=== PATIENT | female | born 1980 | race Caucasian/White ===

== ENCOUNTER 2016-03-11 21:19 | Inpatient (IN) | payer BC ==
[~2016-03-11] VITALS: Ht 167.6 cm; Wt 75.9 kg
[~2016-03-11 21:19] MED LIST: FLNCV PO; KFL500 PO
[2016-03-11 22:30] VITALS: Ht 167.6 cm; Wt 75.9 kg
[2016-03-11] MEDS ORDERED: PRENTAB26 PO (22:33)
[2016-03-11 22:48] LABS: BASO % 0.2 %; BASO ABS # 0.03 K/uL (0-0.2); COMPLETE YES; EOS % 1.1 %; HEMATOCRIT 32.7 % (37-47); IG% 1.7 %; LYMPH % 20.5 %; LYMPH ABS # 2.59 K/uL (1.2-3.4); MEAN CELL VOLUME 81.8 fL (80-100); MEAN CORPUSCULAR HGB CONC 34.3 g/dl (32-36); MEAN PLATELET VOLUME 10.9 fL (7.4-10.4); MONO % 6.3 %; NEUT % 70.2 %; PLATELET COUNT 257 K/uL (130-400); WHITE BLOOD COUNT 12.63 K/uL (4.8-10.8)
[2016-03-11 23:25] LABS: INR 0.9 (0.9-1.1); PROTHROMBIN TIME (PATIENT) 9.9 SECONDS (9.0-12.0)
[2016-03-12] MEDS ORDERED: LACTATED RINGER'S 1000ML 1,000 ML IV SCH (00:27)
[2016-03-12] MEDS ORDERED: LACTATED RINGER'S 1000ML 1,000 ML IV PRN (00:27)
[2016-03-12] MEDS ORDERED: LACTATED RINGER'S 1000ML 500 ML IV PRN ×2 (00:29→11:40)
[2016-03-12] MEDS ORDERED: OXYTOCIN 30 UNITS/500ML NSS IV PRN ×2 (00:30→22:00)
[2016-03-12] MEDS ORDERED: PENICILLIN G POTASSIUM IV 6 MU in DEXTROSE 5% 250ML 250 ML IV ONE (01:00)
--- NOTE | 2016-03-12 01:05 | HISTORY & PHYSICAL EXAMINATION ---
DATE OF ADMISSION: 03/12/2016 CHIEF COMPLAINT: Spotting and vaginal bleeding. HISTORY OF PRESENT ILLNESS: The patient is a 35-year-old G4, P 2-0-1-2, at 39 weeks of gestation, who has been having spotting and light vaginal bleeding since 8:00 p.m. last night, 03/11/2016. She presented to labor and delivery and continued wiping bright red blood on the toilet paper and some on her pad. She has been also feeling crampy in the lower abdomen since 8:00 p.m. She was placed on the monitor. heart rate was 130s-140s with good accelerations, no decelerations. She was having minimal irregular contractions. She denied any leakage of fluid or regular contractions. She reported good movements. She had a speculum exam which showed minimal amount of dark blood and mucus in the vagina, coming from external cervical os. Cervix appeared to be normal multiparous cervix. There were no signs of cervicitis or vaginitis. Digital exam showed cervix to be 2 cm dilated, 30% effaced, -3, vertex. She then had blood work including CBC and coags. Her H\T\H came back 11.2/32.7, white count 12.6, platelets 257. Her coagulation including PT, PTT, INR and fibrinogen were normal. She also had an ultrasound which showed anterior placenta, no evidence of previa, DIANA 13 cm. She came back from ultrasound and we discussed the results in detail. Discussed the spotting could be from clinical abruption or early labor or cervicitis or vaginitis or unknown origin, We discussed observation overnight versus induction of labor at term due to this clinical finding. She understood and she desired to have induction of labor with Pitocin. She understands induction may take a day or two due to unfavorable cervix and the need to use medication. She understands the risks and benefits, and all questions were answered. Her has been complicated by: 1. History of previa without hemorrhage. She had 3 repeat ultrasounds in October and November, but no evidence of previa. 2. GBS positive. 3. High-grade Pap smear in 02/2015. She did not have colposcopy done. Repeat Pap smear at OB visit in July was the same. She declined colposcopy during this . LABORATORY DATA: Blood type is O positive, antibody screen negative, H\T\H , rubella positive, RPR nonreactive, hepatitis B surface antigen negative. GC and chlamydia cultures were negative. One-hour Glucola was 113. Repeat H\T\H was 11.9/34.1. TSH was 0.97. GBS culture was positive on 02/17/2016. PAST MEDICAL HISTORY: As above. Denies any medical problems. PAST SURGICAL HISTORY: Tonsillectomy. MEDICATIONS: vitamins, Bentyl 20 mg 2 times a day as needed for cramping. ALLERGIES: No known drug allergies. SOCIAL HISTORY: The patient denies smoking, alcohol or drug use. OBSTETRICAL HISTORY: She delivered full term in 2014 and 2011, both boys. No complications. She had spontaneous in 04/2015. This is her 4th . PHYSICAL EXAMINATION: GENERAL: The patient is alert, oriented x3, not in acute distress. VITAL SIGNS: Her blood pressure is 100/59, pulse 95, respiration 18, temperature 36.7. CARDIOVASCULAR: S1, S2, RRR. LUNGS: Clear to auscultation bilaterally. ABDOMEN: Soft, gravid. Braydon's 7 to 7-1/2 pounds. EXTREMITIES: Nontender, no edema. PELVIC: As above. heart rate 130s, category 1. [place], mild irregular contractions. ASSESSMENT AND PLAN: The patient is a 35-year-old G4, P 2-0-1-2, at 39 weeks of gestation, with spotting and light vaginal bleeding of unknown source. Vital signs stable, afebrile. heart rate reassuring. GBS positive. Discussed the options, either observation versus induction of labor at term. She desires induction. We plan to admit her, start IV fluids and IV low-dose Pitocin and then penicillin in labor and continuously monitor. All questions were answered. WILMA
[2016-03-12] MEDS ORDERED: INFLUENZA VIRUS QUAD VACCINE 0.5 ML SYR IM. ONE (06:00)
[2016-03-12] MEDS ORDERED: INFLUENZA ADMINISTRATION CHARGE ONE (06:00)
--- NOTE | 2016-03-12 08:04 | DIAGNOSTIC IMAGING REPORT ---
ULTRASOUND LIMITED CLINICAL HISTORY: . Vaginal spotting. COMPARISON STUDY: ultrasound dated 11/05/2015. FINDINGS: Real-time, grayscale, and color Doppler sonography of the fetus and gravid uterus is performed. There is a single live uterine gestation with an estimated heart rate of 139 bpm. Presentation is cephalic. The placenta is anterior and normal in appearance. The amniotic fluid index measures 10.36 cm. The femoral length measures 7.55 cm, corresponding to an estimated age of 38 weeks 4 days. The cervix appears closed and measures at least 2.5 cm in length. IMPRESSION: 1. There is a single live intrauterine gestation with an estimated age of 38 weeks 4 days by femoral length measurement. 2. No acute abnormality is seen. 3. Note that this does not constitute an anatomic scan. Electronically signed by: Cristofer Diez M.D. 03/12/2016 8:02 AM Dictated Date/Time: 03/12/2016 8:00 AM
[2016-03-12] MEDS: PENICILLIN G POTASSIUM IV 3 MU in DEXTROSE 5% 100ML 100 ML IV PRN ×3 (10:25→18:42)
[2016-03-12] MEDS ORDERED: FENTANYL 2MCG/ML ROPIV 1.25MG/ML 100ML BAG EPI ONE (10:30)
[2016-03-12] MEDS ORDERED: EpHEDrine SULFATE INJ 50 MG/ML AMP ONE (10:30)
[2016-03-12] MEDS ORDERED: BUPIVACAINE 0.25% 30 ML VIAL ONE (10:30)
[2016-03-12] MEDS ORDERED: FENTANYL CITRATE INJ 50 MCG/1 ML 2 ML VIAL ONE (10:31)
[2016-03-12] MEDS ORDERED: NALOXONE HCL INJ 1 MG in SODIUM CHLORIDE 0.9% 1000ML 1,000 ML IV PRN (11:40)
[2016-03-12] MEDS ORDERED: NALBUPHINE HCL INJ 10 MG/ML AMP IV PRN (11:45)
[2016-03-12] MEDS ORDERED: NALOXONE HCL INJ 0.4 MG/1 ML VIAL/CARP IV PRN (11:45)
[2016-03-12] MEDS ORDERED: EpHEDrine SULFATE INJ 50 MG/ML AMP IV PRN (11:45)
[2016-03-12] MEDS ORDERED: ONDANSETRON INJ 2 MG/ML 2 ML VIAL IV PRN (11:45)
[2016-03-12] MEDS ORDERED: DiphenhydrAMINE HCL 50 MG/ML VIAL IV PRN (11:45)
[2016-03-12] MEDS ORDERED: CALCIUM CARBONATE 500 MG CHEWABLE PO PRN (14:15)
[2016-03-12] MEDS ORDERED: NURSING VERBAL MED ORDER ONE (14:15)
[2016-03-12] MEDS: FENTANYL 2MCG/ML ROPIV 1.25MG/ML 100ML BAG EPI PRN ×2 (19:00→20:44)
[2016-03-12] MEDS ORDERED: METHYLERGONOVINE MALEATE 0.2 MG/ML AMP ONE (21:52)
[2016-03-12] MEDS ORDERED: ACETAMINOPHEN/CODEINE 300/30MG TAB PO PRN ×2 (22:00)
[2016-03-12] MEDS ORDERED: OXYCODONE/ACETAMINOPHEN 5-325 TAB PO PRN (22:00)
[2016-03-12] MEDS ORDERED: LANOLIN OINT EXT PRN ×2 (22:00)
[2016-03-12] MEDS ORDERED: ACETAMINOPHEN 325 MG TAB PO PRN (22:00)
[2016-03-12] MEDS ORDERED: SUPERCREAM 0.870 % 15GM JAR EXT PRN (22:00)
[2016-03-12] MEDS ORDERED: HYDROCORTISONE ACETATE 25 MG SUPP PR PRN (22:00)
[2016-03-12] MEDS ORDERED: METHYLERGONOVINE MALEATE 0.2 MG/ML AMP IM ONE (22:00)
[2016-03-12] MEDS ORDERED: BENZOCAINE 20% AER SPR 82.5 GM CAN EXT PRN (22:00)
--- NOTE | 2016-03-12 22:46 | Anesthesia Procedure Note ---
Anesthesia Epidural Removal Nt Date & Time Mar 12, 2016 at 22:46 Vital Signs Pain Intensity: 3.0 Notes Mental Status: alert / awake / arousable, participated in evaluation Nausea / Vomiting: adequately controlled Pain: adequately controlled Airway Patency, RR, SpO2: stable & adequate BP & HR: stable & adequate Hydration State: stable & adequate Neuraxial Anesthesia: was administered Anesthetic Complications: no major complications apparent, pt satisfied with anesthetic care Epidural: removed without complications, with tip intact
[2016-03-12] MEDS ORDERED: MISOPROSTOL 200 MCG TAB PR ONE (23:00)
[2016-03-13] VITALS (7 sets, daily range): BP systolic 92–124; BP diastolic 62–76; PULSE 69–85; TEMP 36.5–36.8
[2016-03-13] MEDS: IBUPROFEN 600 MG TAB PO PRN ×5 (01:00→21:52)
[2016-03-13 06:57] LABS: HEMATOCRIT 31.3 % (37-47)
--- NOTE | 2016-03-13 07:50 | OB/GYN Progress Note ---
FACILITIES PLANNER Progress Note Date of Service Mar 13, 2016. Subjective conversation w/ patient, physical exam Ambulation: ambulating normally Voiding: no voiding problems Passing Gas: Yes Diet Tolerance: Regular Diet Lochia: Moderate Feeding Type: Breast Feeding Review of Systems Constitutional: No chills, No fatigue, No fever, No problem reported, No sweats , No weakness, No weight loss Respiratory: No cough, No dyspnea at rest, No dyspnea on exertion, No hemoptysis, No problem reported, No shortness of breath, No sputum, No wheezing Cardiac: No PND, No chest pain, No claudication, No edema, No orthopnea, No palpitations, No problem reported Breast: No breast lump, No breast pain, No change in shape, No nipple discharge , No problem reported, No see HPI Abdomen: No GI bleeding, No constipation, No diarrhea, No nausea, No pain, No problem reported, No vomiting Female : No abnormal vaginal bleeding, No dysuria, No hematuria, No incontinence, No problem reported, No see HPI, No urinary frequency, No vaginal discharge VD day #1 pt doing well no complaints disch home tomorrow Objective Vital Signs Date Time Temp Pulse Resp B/P Pulse Ox O2 Delivery O2 Flow Rate FiO2 03/13/16 04:00 36.6 70 18 124/76 Room Air 03/13/16 00:50 36.5 85 18 120/70 Room Air 03/13/16 00:50 Room Air Laboratory Results Last 24 Hours Test 03/13/16 06:05 Hemoglobin 10.5 g/dL Hematocrit 31.3 %
[2016-03-13] MEDS ORDERED: MTR600X PO (07:52)
[2016-03-13] MEDS: PRENATAL VITAMIN TAB PO SCH ×2 (07:53→07:55)
[2016-03-13] MEDS: DOCUSATE SODIUM 100 MG CAP PO SCH ×2 (07:53→19:46)
[2016-03-13] MEDS: FERROUS SULFATE 325 MG TAB PO SCH (07:53)
--- NOTE | 2016-03-13 07:53 | Discharge Instructions ---
Discharge Instructions Admission Reason for Admission: LABOR Discharge Discharge Diagnosis / Problem: Discharge Goals Goal(s): Routine recovery after delivery Activity Recommendations Activity Limitations: resume your previous activity Exercise/Sports Limitations: until after follow-up appointment May Resume Sexual Activity: after follow-up appointment Shower/Bathe: tomorrow Driving or Machine Use: ACTIVITY RECOMMENDATIONS: * Gradual return to full activity over the next 2-3 weeks. * No lifting - nothing heavier than baby over the next 2-3 weeks. * Do not engage in vigorous exercise, sexual activity or sports until cleared by your physician. * Do not drive or operate any motorized equipment until cleared by your physician. * You may shower/bathe daily. BREAST CARE: If you are not breast feeding: * Wear a supportive bra 24 hours a day for one to two weeks. * Avoid stimulating your breasts and nipples as much as possible during the first few weeks after delivery. * When taking a shower, have the warm water hit your back, not breasts. * When your breasts feel full, apply ice packs. Usually three to four times a day helps ease the discomfort. * Take a mild pain medication (Tylenol/Motrin) when you are uncomfortable. If breast feeding: * Use breast milk to lubricate nipples. Lansinoh cream may be used for sore nipples. You do not need to remove cream prior to breast feeding. If using a different brand of cream, check the label for directions regarding removal of cream prior to nursing. * Wear a supportive bra. * If having problems with breasts or breast feeding, call a baby registry sales consultant or your health care provider. EPISIOTOMY CARE: After delivery, if you have an episiotomy (stitches), the following steps will ease discomfort and aid healing. * For the first 24 hours after delivery, place ice packs next to your episiotomy to help reduce swelling. * After the first 24 hour-period, sitz baths, either portable or in the tub, are suggested. A shower with a shower arm sprayed over the episiotomy may be comforting. * Renetta care should be done after each voiding and bowel movement. Squirt warm water from a plastic bottle over the perineum (region of the body between the anus and urinary opening) and pat dry. * Use Dermoplast to ease discomfort. Shake container. [place] directly over the episiotomy. * Place a Tucks on a clean sanitary pad next to your episiotomy. OVER THE COUNTER MEDICATION: * For discomfort or pain, you may use Acetaminophen (Tylenol), Ibuprofen (Advil ), or Naproxen (Aleve) following the package directions. * For constipation you may use Colace following the package directions. SPECIAL CARE INSTRUCTIONS: When you are discharged from the hospital, it is important for you to follow the instructions listed below: * During the first week at home, you should be able to care for yourself and your baby. In addition, the usual light household activities are encouraged. * Limit your activities to the way you feel. Do not try to clean the house or move furniture. Be sensible. * If you actively engage in sports and have done so up until the time of your delivery, you may resume these activities as soon as you feel able. This may take up to one month or even longer. Use good judgment. * Continue to take your vitamins for at least six weeks after the of your baby. * Your diet need not be limited unless you were on a special diet before your delivery. Breast-feeding mothers need around 2500 calories per day and at least 64-80 ounces of fluid per day (8 to 10 glasses). * You should eat foods from the four major food groups. Crash diets or fad diets are to be avoided. Eating lean meats, fresh fruits and vegetables, low-fat dairy products, high fiber foods and a regular exercise program, will help you get back to your pre- weight without putting your health at risk. * Constipation is sometimes a problem after delivery. Take a mild laxative as needed. If breast feeding, Milk of Magnesia is acceptable to use. You may use a suppository or Fleets enema if no episiotomy. * A daily shower or tub bath is suggested. Be sure to thoroughly and gently dry the perineum. * A bloody vaginal discharge will usually continue until around four weeks post . A small amount of bleeding may continue for as long as six weeks. Vaginal discharge changes from the bright red bleeding after delivery to pink then brownish and finally yellowish-pink before becoming white and disappearing. * Bleeding may increase with activity. Your first period may come in 4-8 weeks. If you are breast feeding, your period may be delayed even longer. * [place] (sex) can begin whenever both you and your partner feel comfortable and do not have any form of genital infection. It is recommended that you wait until after your return appointment and discuss with your physician. If you have questions, please talk to your health care practitioner. A condom should be used to prevent infection and . * Foreplay, gentle intercourse and lubrication is very important the first several times to prevent pain. A water-based lubricant such as K-Y jelly or Astroglide may be used. * Tampons may be used six weeks after delivery. * Douching should be avoided for 6 weeks after delivery. * If you have RH negative blood and your baby is RH positive, you will receive RHOGAM by injection prior to discharge. The nurse will give you a card to keep with you that has the date and place that you received RHOGAM after delivery. * During your care, you had a Rubella screen done to check for the presence of rubella antibodies in your blood. If your test was negative, you will receive a Rubella vaccine prior to discharge. This vaccine may cause a fever, soreness at the injection site and flu-like symptoms. If these symptoms persist, notify your health care practitioner. is not advised for three months after a Rubella vaccine. There is a higher chance of having a baby with defects if conceived within three months of getting the vaccine. * If you were discharged 24 hours from delivery or before 48 hours: Visiting nurses will come to your home 48 hours after discharge to assess you and your baby. The visiting nurse will meet with you while you are in the hospital to arrange a time and get directions to your home. * Verbalizes understanding of car seat law as reviewed with patient nursing. * Car Seat hand-out given and reviewed with patient by nursing. * Shaken baby information reviewed with patient by nursing. Call you doctor if: * Heavy bleeding (saturating several pads an hour) or passing clots the size of your fist. * A fever >101 degrees F (38.3 degrees C) on two occasions four hours apart and/or chills. * Unusual pain in the pelvic or vaginal areas. * "Baby Blues" lasting longer than two weeks. If you have any questions or concerns, call your health care practitioner at . FOLLOW-UP VISIT: * Please call the office at to schedule a 6 week examination. It is important you keep this appointment. * It is important for you to make arrangements for either yearly or twice yearly check-ups thereafter. . Current Hospital Diet Patient's current hospital diet: Regular OB Diet Discharge Diet Recommended Diet: Regular Diet Pending Studies Studies pending at discharge: no Medical Emergencies . Who to Call and When: Medical Emergencies: If at any time you feel your situation is an emergency, please call 911 immediately. . Non-Emergent Contact Non-Emergency issues call your: Specialist Call Non-Emergent contact if: you have a fever, your pain is not controlled, wound has increased drainage . . "Provider Documentation" section prepared by Zander Wesley. VTE Core Measure Inpt VTE Proph given/why not?: Treatment not indicated
[2016-03-13] MEDS: FLINTSTONES COMPLETE CHEWABLE TAB PO SCH (09:38)
[2016-03-13] MEDS ORDERED: BISACODYL 5 MG TABEC PO SCH (20:00)
[2016-03-14] MEDS: IBUPROFEN 600 MG TAB PO PRN ×2 (03:09→07:51)
[2016-03-14 06:56] LABS: HEMATOCRIT 27.2 % (37-47); MEAN CELL VOLUME 82.4 fL (80-100); MEAN CORPUSCULAR HEMOGLOBIN 27.6 pg (25-34); MEAN CORPUSCULAR HGB CONC 33.5 g/dl (32-36); MEAN PLATELET VOLUME 10.9 fL (7.4-10.4); PLATELET COUNT 244 K/uL (130-400)
[2016-03-14] MEDS ORDERED: BISACODYL 10 MG SUPP PR PRN (07:00)
[2016-03-14 07:40] VITALS: BP 106/69; PULSE 83; TEMP 36.4
[2016-03-14] MEDS: FERROUS SULFATE 325 MG TAB PO SCH (07:50)
[2016-03-14] MEDS: DOCUSATE SODIUM 100 MG CAP PO SCH (07:50)
[2016-03-14] MEDS: FLINTSTONES COMPLETE CHEWABLE TAB PO SCH (07:51)
[2016-03-14 10:20] VITALS: BP_DIAS 69; PULSE 83; TEMP 36.4
--- NOTE | 2016-03-15 07:02 | OPERATIVE REPORT ---
DATE OF OPERATION: 03/12/2016 The patient delivered a live infant female in occiput anterior presentation. There was no nuchal cord. Infant was delivered, placed on mother's abdomen, cord was clamped and cut. Weight is pending, Apgars 8 and 9. Inspection of the perineum showed a first degree midline laceration as well as a periurethral tear. Placenta was not spontaneously delivered after 30 minutes and was therefore manually removed. Bedside ultrasound was performed, documenting a small retained placenta which was manually removed using a banjo curette, done under ultrasound guidance. The lacerations were repaired with 2-0 and 3-0 Vicryl. There was good hemostasis at end of the procedure. The patient received Methergine and Cytotec to help improve her bleeding. ESTIMATED BLOOD LOSS: 600 mL. All instruments are removed from the vagina including sponges, laps and retractors. Baby and mother are doing well in recovery. I attest to the content of the Intraoperative Record and any orders documented therein. Any exceptio ns are noted below.
== END 2016-03-14 10:22 | disposition home or self-care (01) | DRG 775 ==
LOC: C.OPB 21:19 → C.LD 21:19 → C.OPB 03-12 00:28 → C.OBG 03-13 00:56
PROVIDERS: ADMIT Obstetrics & Gynecology; ATTEND Obstetrics & Gynecology
PROC: 10E0XZZ Delivery of Products of Conception, External Approach (ICD-10-PCS; principal; 2016-03-12)
PROC: 0WQNXZZ Repair Female Perineum, External Approach (ICD-10-PCS; 2016-03-12)
DX: O70.0 First degree perineal laceration during delivery (principal); O99.824 Streptococcus B carrier state complicating childbirth; Z3A.39 39 weeks gestation of pregnancy; Z37.0 Single live birth

== ENCOUNTER 2016-12-19 11:36 | Emergency (ER) | payer BC ==
[~2016-12-19] VITALS: Ht 167.6 cm; Wt 78.2 kg
[~2016-12-19 11:36] MED LIST changes: +MTR600X PO; +PRENTAB26 PO
[2016-12-19 11:50] VITALS: TEMP 37.1; Ht 167.6 cm; Wt 78.2 kg
--- NOTE | 2016-12-19 12:34 | EMERGENCY ROOM VISIT NOTE ---
History Report prepared by Ly: Alexandria Castillo Under the Supervision of: Dr. Buck Johnson M.D. First contact with patient: 12:11 Chief Complaint: HEADACHE Stated Complaint: HEADACHES History of Present Illness The patient is a 36 year old white female with a past medical history of migraines and tonsillectomy who presents to the ED with a cc of a constant throbbing headache beginning a 2 weeks ago. The patient states that she used to get migraines and was on medication but she has not had issues for a long time with her migraines. She reports that her headache over the last 2 weeks has not felt like a usual migraine and she does not have the vision changes that she had before. She notes that the pain is on the top of her head and starts dull in the morning and worsens throughout the day. Pt states that Excedrin migraine does not relieve her symptoms at all. Positive joint stiffness after sitting for a while. Negative abdominal pain, recent travel, recent antibiotics, fever, history of blood clots, history of being hypercoagulable. LNMP was 2 weeks ago and the patient has an IUD. Source of History: patient Onset: 2 weeks ago Position: head Quality: ache, other (throbbing) Timing: constant Modifying Factors (Relieving): other (none) Associated Symptoms: No fevers, No abdominal pain Note: Positive joint stiffness after sitting for a while. Negative recent travel, recent antibiotics, history of blood clots, history of being hypercoagulable. Review of Systems See HPI for pertinent positives and negatives. A total of ten systems were reviewed and were otherwise negative. Past Medical & Surgical Medical Problems: (1) Bladder infection (2) Spotting affecting in second trimester (3) Spotting affecting in third trimester Surgical Problems: (1) History of tonsillectomy Family History Cancer Diabetes mellitus Heart disease Hypertension Kidney disease Kidney stones Lung disease Social History Smoking Status: Never Smoker Marital Status: Occupation Status: employed Current/Historical Medications Scheduled PRN Metoclopramide (Reglan), 10 MG PO Q6H PRN for Nausea Allergies Coded Allergies: No Known Allergies (Unverified , 12/19/16) Physical Exam Vital Signs Date Time Temp Pulse Resp B/P (MAP) Pulse Ox O2 Delivery O2 Flow Rate FiO2 12/19/16 16:00 76 18 92/65 99 12/19/16 15:00 72 20 120/78 99 Room Air 12/19/16 14:16 70 20 127/73 98 Room Air 12/19/16 11:50 37.1 71 18 125/77 98 Room Air Physical Exam GENERAL: Awake, alert, well-appearing, NAD HENT: Normocephalic, atraumatic. Complains of some mild sinus pressure. EYES: Normal conjunctiva. Sclera non-icteric. NECK: Supple. No nuchal rigidity. FROM. No meningismus, no nuchal rigidity. RESPIRATORY: CTAB, no rhonchi, wheezing, crackles CARDIAC: RRR, no MRG ABDOMEN: Soft, NTND, BS+ MSK: No chest wall TTP, no LE edema NEURO: CN 2-12 intact, 5/5 upper and lower extremity strength, no dysmetria, no drift, good finger to nose, no sensory deficits. SKIN: No rash or jaundice noted. Medical Decision & Procedures ER Provider Diagnostic Interpretation: Radiology results as stated below per my review and radiologist interpretation: CT OF THE HEAD WITHOUT CONTRAST TECHNIQUE: Helical axial images of the head were obtained without IV contrast. Automated exposure control was utilized for the study. A dose lowering technique was utilized adhering to the principles of ALARA. FINDINGS: No acute intracranial hemorrhage, midline shift or mass effect is present. Brain volume is normal. Slight asymmetry of the lateral ventricles is likely due to physiologic variation. The basilar cisterns are patent. There are no extra-axial collections. Mcmahon-white differentiation is maintained. There are no findings to suggest acute dural sinus thrombosis or acute territorial infarct. There are no significant calvarial abnormalities. Visualized portions of the sinuses and mastoid air cells are clear. IMPRESSION: No acute intracranial findings. Electronically signed by: Blane Damon M.D. 12/19/2016 3:15 PM Dictated Date/Time: 12/19/2016 2:54 PM Laboratory Results 12/19/16 13:26 Red Blood Count 4.65, Mean Corpuscular Volume 82.2, Mean Corpuscular Hemoglobin 28.2, Mean Corpuscular Hemoglobin Concent 34.3, Mean Platelet Volume 10.4, Neutrophils (%) (Auto) 60.2, Lymphocytes (%) (Auto) 31.2, Monocytes (%) (Auto) 6.0, Eosinophils (%) (Auto) 2.1, Basophils (%) (Auto) 0.4, Neutrophils # (Auto) 4.55, Lymphocytes # (Auto) 2.36, Monocytes # (Auto) 0.45, Eosinophils # (Auto) 0.16, Basophils # (Auto) 0.03 12/19/16 13:26 Test 12/19/16 13:05 12/19/16 13:26 Urine Color YELLOW Urine Appearance CLOUDY (CLEAR) Urine pH 6.5 (4.5-7.5) Urine Specific [place] 1.023 (1.000-1.030) Urine Protein NEG (NEG) Urine Glucose (UA) NEG (NEG) Urine Ketones TRACE (NEG) Urine Occult Blood NEG (NEG) Urine Nitrite NEG (NEG) Urine Bilirubin NEG (NEG) Urine Urobilinogen NEG (NEG) Urine Leukocyte Esterase TRACE (NEG) Urine WBC (Auto) 1-5 /hpf (0-5) Urine RBC (Auto) 0-4 /hpf (0-4) Urine Hyaline Casts (Auto) 1-5 /lpf (0-5) Urine Epithelial Cells (Auto) >30 /lpf (0-5) Urine Bacteria (Auto) NEG (NEG) Urine Test NEG (NEG) White Blood Count 7.56 K/uL (4.8-10.8) Red Blood Count 4.65 M/uL (4.2-5.4) Hemoglobin 13.1 g/dL (12.0-16.0) Hematocrit 38.2 % (37-47) Mean Corpuscular Volume 82.2 fL (80-100) Mean Corpuscular Hemoglobin 28.2 pg (25-34) Mean Corpuscular Hemoglobin Concent 34.3 g/dl (32-36) Platelet Count 283 K/uL (130-400) Mean Platelet Volume 10.4 fL (7.4-10.4) Neutrophils (%) (Auto) 60.2 % Lymphocytes (%) (Auto) 31.2 % Monocytes (%) (Auto) 6.0 % Eosinophils (%) (Auto) 2.1 % Basophils (%) (Auto) 0.4 % Neutrophils # (Auto) 4.55 K/uL (1.4-6.5) Lymphocytes # (Auto) 2.36 K/uL (1.2-3.4) Monocytes # (Auto) 0.45 K/uL (0.11-0.59) Eosinophils # (Auto) 0.16 K/uL (0-0.5) Basophils # (Auto) 0.03 K/uL (0-0.2) RDW Standard Deviation 38.7 fL (36.4-46.3) RDW Coefficient of Variation 12.9 % (11.5-14.5) Immature Granulocyte % (Auto) 0.1 % Immature Granulocyte # (Auto) 0.01 K/uL (0.00-0.02) Anion Gap 7.0 mmol/L (3-11) Est Creatinine Clear Calc Drug Dose 121.2 ml/min Estimated GFR () 131.6 Estimated GFR (Non- 113.6 BUN/Creatinine Ratio 10.6 (10-20) Calcium Level 8.1 mg/dl (8.5-10.1) Laboratory results reviewed by me Medications Administered Medications (Trade) Dose Ordered Sig/Jeronimo Route Start Time Stop Time Status Last Admin Dose Admin Diphenhydramine HCl (Benadryl Inj) 50 mg NOW STAT IV 12/19/16 12:37 12/19/16 12:39 DC 12/19/16 13:12 50 MG Sodium Chloride 1,000 ml @ 999 mls/hr Q1H1M STAT IV 12/19/16 12:37 12/19/16 13:37 DC 12/19/16 13:11 999 MLS/HR Acetaminophen (Tylenol Tab) 1,000 mg NOW STAT PO 12/19/16 12:37 12/19/16 12:39 DC 12/19/16 13:13 1,000 MG Ibuprofen (Advil Tab) 400 mg NOW STAT PO 12/19/16 12:37 12/19/16 12:39 DC 12/19/16 13:12 400 MG Metoclopramide HCl 20 mg/Sodium Chloride 54 ml @ 162 mls/hr NOW STAT IV 12/19/16 12:37 12/19/16 12:56 DC 12/19/16 13:11 162 MLS/HR ED Course 1211: The patient was evaluated in room C2. A complete history and physical exam was performed. 1237: Metoclopramide HCl 20mg/Sodium Chloride 54ml @ 162mls/hr IV, Advil Tab 400mg PO, Tylenol Tab 1000mg PO, Sodium Chloride 1000 ml @ 999 mls/hr IV, Benadryl Inj 50mg IV. 1412: I reevaluated the patient. The patient would like a CT due to her chronic pain. 1545: I reevaluated and updated the patient. 1550: I reevaluated the patient. Discussed results and discharge instructions: She verbalized understanding and agreement. The patient is ready for discharge. Medical Decision The patient is a 36 year old white female with a past medical history of migraines and tonsillectomy who presents to the ED with a cc of a constant throbbing headache beginning a 2 weeks ago. Differential diagnosis: Etiologies such as migraine headache, meningitis, sinusitis, CO exposure, ICH, SAH, infection, tumor, headache, sinus thrombosis, arterial dissection, as well as others were entertained. Patient was seen and evaluated at the bedside. Patient was complaining of some prolonged headache but sometimes dissipate come morning but return during the day. Patient denied any trauma was on any blood thinning medications. Patient does use a Mirena IUD however has no prior history of blood clots or thromboembolism. Patient denies any vision changes and has no other neurologic deficits. Patient did have a CT performed along with basic blood work and a urine. Patient's UA was clean with a negative urine test. Blood work was fairly unremarkable. CT head negative acute. Patient's pain improved with symptomatic care. Patient was not hypertensive thus additional imaging was not obtained at this time as acute stroke likely would've manifested itself given the chronicity of her symptoms. Given the fact the patient's pain improved patient was given medications for home and told to follow-up with neurology as well as her PCP for further care. Patient was told return if she had any worsening symptoms. Patient agreed with plan of care patient was safely discharged home. Medication Reconcilliation Current Medication List: was personally reviewed by me Blood Pressure Screening Patient's blood pressure: Normal blood pressure Blood pressure disposition: Did not require urgent referral Impression Primary Impression: Headache Scribe Attestation The scribe's documentation has been prepared under my direction and personally reviewed by me in its entirety. I confirm that the note above accurately reflects all work, treatment, procedures, and medical decision making performed by me. Departure Information Dispostion Home / Self-Care Prescriptions Metoclopramide (Reglan) 10 Mg Tab 10 MG PO Q6H Y for Nausea, #10 TAB Prov: Buck Johnson M.D. 12/19/16 Referrals No Doctor, Assigned (PCP) Horace Hatfield M.D. (MEDICINE) Patient Instructions Headache Pain, [facility] Additional Instructions Please return to the emergency department if you have worsening or recurrent symptoms not amenable to at-home treatment. Please call for a follow-up appointment with her primary care physician. Please take your medications as prescribed. If you have other concerns and/or complaints please feel free to also call your primary care physician's office or return the ED for further evaluation, management, and treatment. You were found to have an elevated blood pressure today (>120 sytolic or >90 diastolic). Per medicare guidelines, you need to follow up with this blood pressure screening with your Primary Care Physician (PCP). For a new PCP call [phone]. You received narcotic or benzodiazepene medication while in the emergency room today. This is an addictive medication that may cause drowziness as well as constipation. Do not drive, operate heavy machinery, or drink alcohol under the influence of this medication. You have been examined and treated today on an emergency basis only. This is not a substitute for, or an effort to provide, complete comprehensive medical care. It is impossible to recognize and treat all injuries or illnesses in a single emergency department visit. It is therefore important that you follow up closely with [facility]. Call as soon as possible for an appointment. Thank you for your time and consideration. I look forward to speaking with you again soon. Please don't hesitate to call us if you have any questions. Problem Qualifiers Primary Impression: Headache Headache type: unspecified Headache chronicity pattern: chronic headache Intractability: not intractable Qualified Codes: R51 - Headache
[2016-12-19] MEDS ORDERED: IBUPROFEN 200 MG TAB PO STA (12:37)
[2016-12-19] MEDS ORDERED: DiphenhydrAMINE HCL 50 MG/ML VIAL IV STA (12:37)
[2016-12-19] MEDS ORDERED: ACETAMINOPHEN 500 MG TAB PO STA (12:37)
[2016-12-19] MEDS ORDERED: SODIUM CHLORIDE 0.9% 1000ML 1,000 ML IV STA (12:37)
[2016-12-19] MEDS ORDERED: METOCLOPRAMIDE HCL INJ 20 MG in SODIUM CHLORIDE 0.9% 50ML 50 ML IV STA (12:37)
[2016-12-19 13:41] LABS: URINE APPEARANCE CLOUDY (CLEAR); URINE BILIRUBIN NEG (NEG); URINE COLOR YELLOW; URINE EPITHELIAL CELL AUTO >30 /lpf (0-5); URINE NITRITE NEG (NEG); URINE PH 6.5 (4.5-7.5); URINE SPECIFIC GRAVITY 1.023 (1.000-1.030); UROBILINOGEN NEG (NEG)
[2016-12-19 13:41] LABS: BASO % 0.4 %; BASO ABS # 0.03 K/uL (0-0.2); COMPLETE YES; EOS % 2.1 %; HEMATOCRIT 38.2 % (37-47); IG% 0.1 %; LYMPH % 31.2 %; LYMPH ABS # 2.36 K/uL (1.2-3.4); MEAN CELL VOLUME 82.2 fL (80-100); MEAN CORPUSCULAR HEMOGLOBIN 28.2 pg (25-34); MEAN CORPUSCULAR HGB CONC 34.3 g/dl (32-36); MEAN PLATELET VOLUME 10.4 fL (7.4-10.4); NEUT % 60.2 %; PLATELET COUNT 283 K/uL (130-400); RED BLOOD COUNT 4.65 M/uL (4.2-5.4); WHITE BLOOD COUNT 7.56 K/uL (4.8-10.8)
[2016-12-19 13:42] LABS: MANUAL MICROSCOPIC REQUIRED? NO; REVIEW REQ? NO
[2016-12-19 14:01] LABS: BUN/CREATININE RATIO 10.6 (10-20); CALCIUM 8.1 mg/dl (8.5-10.1); CREATININE 0.69 mg/dl (0.60-1.20); POTASSIUM 3.6 mmol/L (3.5-5.1)
--- NOTE | 2016-12-19 15:16 | DIAGNOSTIC IMAGING REPORT ---
CT OF THE HEAD WITHOUT CONTRAST CLINICAL HISTORY: Chronic headache. COMPARISON STUDY: No previous studies for comparison. CT DOSE: 537.48 mGy.cm TECHNIQUE: Helical axial images of the head were obtained without IV contrast. Automated exposure control was utilized for the study. A dose lowering technique was utilized adhering to the principles of ALARA. FINDINGS: No acute intracranial hemorrhage, midline shift or mass effect is present. Brain volume is normal. Slight asymmetry of the lateral ventricles is likely due to physiologic variation. The basilar cisterns are patent. There are no extra-axial collections. Mcmahon-white differentiation is maintained. There are no findings to suggest acute dural sinus thrombosis or acute territorial infarct. There are no significant calvarial abnormalities. Visualized portions of the sinuses and mastoid air cells are clear. IMPRESSION: No acute intracranial findings. Electronically signed by: Blane Damon M.D. 12/19/2016 3:15 PM Dictated Date/Time: 12/19/2016 2:54 PM
[2016-12-19] MEDS ORDERED: METO-157 PO (15:46)
[2016-12-19 16:00] VITALS: BP 92/65; PULSE 76; O2SAT 99
== END 2016-12-19 16:21 | disposition home or self-care (01) ==
LOC: C.EDB 11:38 → C.EDC 16:21
DX: R51 Headache (principal); Z83.3 Family history of diabetes mellitus; Z82.49 Family history of ischemic heart disease and other diseases of the circulatory system; Z84.1 Family history of disorders of kidney and ureter